=== PATIENT | female | born 1950 | race Caucasian/White ===

== ENCOUNTER 2017-12-25 22:48 | Inpatient (IN) | payer MEDICARE, OTHER ==
--- NOTE | 2017-12-25 23:04 | PDOC ---
History of Present Illness - General Chief Complaint: Nausea/Vomiting Stated Complaint: VOMITING/ PANCREATIC CANCER Time Seen by Provider: 12/25/17 23:04 History Source: Patient Exam Limitations: No Limitations - History of Present Illness Initial Comments: 12/25/17 23:11 This is a 67-year-old female brought in by her son for evaluation of abdominal pain and vomiting 2 days. Patient has a history of pancreatic cancer and just finished her first round of chemotherapy. She is on 3 different chemotherapy drugs and it is a aggressive regime.. Patients chemotherapy was on Tuesday of last week. She then also had 2 days of chemotherapy at home via a pump and a port. Her chemotherapy was stopped on Tuesday and shortly after that she started vomiting and has been vomiting since and unable to tolerate any by mouth's as per her family. Patient said that the abdominal pain is constant and she takes Percocet for it however she is not been able to take the Percocet because she's been vomiting. Patient said at this point the vomitus consists of bile. Patient last bowel movement was 2 days ago. Patient denies any fevers or chills. Patient denies any urinary complaints. PAST MEDICAL HISTORY: no significant history PAST SURGICAL HISTORY: no significant history FAMILY HISTORY: no pertinant history SOCIAL HISTORY: Pt lives with family and is employed. MEDICATIONS: reviewed ALLERGIES: As per nursing notes Review of Systems General: No fevers or chills, no weakness, no weight loss HEENT: No change in vision. No sore throat,. No ear pain CardioVascular: No chest pain or shortness of breath Respiratory:No cough, or wheezing. Gastrointestinal: + nausea, + vomitting, no diarrhea or constipation, No rectal bleeding Genitourinary: No dysuria, hematuria, or frequency Musculoskeletal: No joint or muscle pain or swelling Neurologic: No headache, vertigo, dizziness or loss of consciousness Psychiatric: nor depression Skin: No rashes or easy bruising Endocrine: no increased thirst or abnormal weight change Allergic: no skin or latex allergy All other systems reviewed and normal Exam: General: Well-nourished well-developed individual, no acute distress, but appears uncomfortable. HEENT: Throat: Normal, tonsils normal, no erythema or exudate, mucous membranes are dry Neck: Supple, no meningeal signs, no lymphadenopathy Eyes::Pupils equal reactive and round, extraocular motion intact Chest: Nontender to palpation Cardiac: S1-S2 normal, regular rate and rhythm, no murmurs rubs or gallops Respiratory: Lungs clear to auscultation bilateral Abdomen: Soft, nondistended, normal bowel sounds, moderately tender to palpation across the upper abdomen, bowel sounds are present but slightly decreased Extremities: Warm, dry, no cyanosis, clubbing, or edema Skin: No rashes Neuro: Alert and oriented x3, nonfocal exam grossly intact Psych: Normal mood and affect Medical decision making this is a 67-year-old female who comes in complaining of 2 days of vomiting post her first dose of a aggressive chemotherapy regime for pancreatic cancer. Patient also on exam has upper abdominal pain. Patient said she has not had a bowel movement 2 days and her vomitus is bilious. Will obtain workup of CBC, comp, EKG, CT abdomen and pelvis, lipase, uric acid, lactic acid, and phosphate. Will reassess and follow-up on the workup/evaluation Reevaluation 12 midnight. Patient on second liter of fluid says she feels a little better. Patient given Dilaudid and antiemetics no further vomiting in the emergency department 12/26/17 01:27 Reevaluation: Post second liter of fluid patient is able to urinate feels much better and tolerating small amounts of ice chips no further vomiting CT scan shows acute pancreatitis, acute cholecystitis, air in the biliary tree and a blocked pancreatic stent. All of patient's chemotherapy doctors and surgeons or [facility] (formerly [facility]). Patient's son is a neurologist who was unable to get in touch with her Drs. arguelles and arrange for transfer of her tonight so she will be admitted to a [facility] bed overnight to allow him to make the arrangements for transfer of her down to [place] where her oncology team is. She will be brought in to an observation bed overnight to allow her son and family to make arrangements for her transfer down to [facility] first thing in the morning. Discussed with Dr. Reese who was accepted the patient for placement into an observation bed overnight Past History - Past Medical History Allergies/Adverse Reactions: Allergies Allergy/AdvReac Type Severity Reaction Status Date / Time Tetracyclines Allergy Verified 12/25/17 22:59 Home Medications: Ambulatory Orders Ondansetron HCl [Zofran] 4 mg PO PRN 12/25/17 Oxycodone HCl 5 mg PO PRN 12/25/17 ED Treatment Course - LABORATORY CBC & Chemistry Diagram: 12/25/17 23:00 12/25/17 23:00 *DC/Admit/Observation/Transfer Diagnosis at time of Disposition: Cholecystitis without cholelithiasis Acute pancreatitis Qualifiers: Pancreatitis type: other Acute pancreatitis complication: unspecified Qualified Code(s): K85.80 - Other acute pancreatitis without necrosis or infection Pancreatic cancer Qualifiers: Pancreatic malignancy location: head of pancreas Qualified Code(s): C25.0 - Malignant neoplasm of head of pancreas - Discharge Dispostion Condition at time of disposition: Stable Admit: Yes - Referrals - Patient Instructions - Post Discharge Activity
[2017-12-25] MEDS ORDERED: HYDROmorphone HCL CARPU-JECT 1 MG/1 ML DISP.SYRIN IVPUSH ONE (23:09)
[2017-12-25] MEDS ORDERED: SODIUM CHLORIDE 1,000 ML IV ONE (23:09)
[2017-12-25] MEDS ORDERED: ONDANSETRON 4 MG/2 ML VIAL IVPB ONE (23:10)
[2017-12-25 23:12] VITALS: BMI 23.4
[2017-12-25] MEDS ORDERED: ONDANSETRON 4 MG/2 ML VIAL ONE (23:15)
[2017-12-25] MEDS ORDERED: HYDROmorphone HCL CARPU-JECT 1 MG/1 ML DISP.SYRIN ONE (23:15)
[2017-12-25 23:18] LABS: HEMATOCRIT 42.2 % (32.4-45.2); HEMOGLOBIN 14.3 GM/dl (10.7-15.3); MCH 29.6 pg (25.7-33.7); MCHC 33.8 g/dl (32.0-36.0); MEAN CELL VOLUME 87.6 fl (80-96); MEAN PLT VOLUME 8.8 fl (7.5-11.1); PLATELET COUNT 291 K/MM3 (134-434); RBC 4.82 M/mm3 (3.60-5.2)
[2017-12-25 23:41] LABS: ALBUMIN 3.7 g/dl (3.5-5.0); ALK PHOS 183 U/L (32-92); ANION GAP 11 (8-16); BILIRUBIN,TOTAL 1.4 mg/dl (0.2-1.0); BLOOD UREA NITROGEN 13 mg/dl (7-18); CALCIUM 9.1 mg/dl (8.4-10.2); CHLORIDE 95 mmol/L (98-107); CO2 23 mmol/L (22-28); CREATININE 0.7 mg/dl (0.6-1.3); GLUCOSE,RANDOM 144 mg/dl (74-106); POTASSIUM 3.7 mmol/L (3.5-5.1); SGOT/AST 59 U/L (10-42); SGPT/ALT 117 U/L (10-40); SODIUM 129 mmol/L (136-145); TOT PROT 6.9 g/dl (6.4-8.3)
[2017-12-25 23:43] LABS: PLATELET ESTIMATE ADEQUATE
[2017-12-26 00:19] LABS: LIPASE 86 U/L (73-393)
[2017-12-26] MEDS ORDERED: ASPIRIN 81 MG CHEWABLE TABLETS PO ONE (00:31)
[2017-12-26 01:03] LABS: PHOSPHOROUS 2.9 mg/dL (2.5-4.9); URIC ACID 2.3 mg/dL (2.6-7.2)
[2017-12-26] MEDS ORDERED: PIPERACILLIN/TAZOB 4.5 GM/100 ML PRE-DOCKED IVPB STA (01:11)
[2017-12-26] MEDS ORDERED: PIPERACILLIN/TAZOBACTAM 4.5 GM VIAL IVPB ONE (01:13)
[2017-12-26 01:17] LABS: URINE APPEARANCE CLEAR; URINE BILIRUBIN NEGATIVE (NEGATIVE); URINE BLOOD NEGATIVE (NEGATIVE); URINE COLOR STRAW; URINE GLUCOSE (UA) NEGATIVE (NEGATIVE); URINE KETONE TRACE (NEGATIVE); URINE LEUK ESTERASE NEGATIVE (NEGATIVE); URINE NITRITE NEGATIVE (NEGATIVE); URINE PROTEIN NEGATIVE (NEGATIVE); URINE UROBILINOGEN NEGATIVE mg/dL (0.2-1.0)
[2017-12-26] MEDS: SODIUM CHLORIDE 1,000 ML IV SCH (01:30)
[2017-12-26] MEDS ORDERED: PROCHLORPERAZINE INJECTION 10 MG/2 ML VIAL IVPB ONE ×2 (02:30→05:15)
[2017-12-26] MEDS ORDERED: HYDROmorphone HCL CARPU-JECT 1 MG/1 ML DISP.SYRIN IVPUSH ONE (02:31)
[2017-12-26] MEDS ORDERED: HYDROmorphone HCL CARPU-JECT 1 MG/1 ML DISP.SYRIN ONE (04:53)
--- NOTE | 2017-12-26 07:41 | HP ---
CHIEF COMPLAINT: nausea and vomiting Oncologist: Dr Duran HISTORY OF PRESENT ILLNESS: patient is a 67-year-old female with a past medical history of hyperlipidemia, osteoarthritis, and pancreatic cancer. patient is status post biliary stent, 11/16/2017. She is receiving chemotherapy her last dose of chemotherapy was 12/21/2017. In addition patient has received 2 doses of chemotherapy at home via pump through her port on and December 22 in December 23. Patient reports her last dose of Neulasta was 12/23/2017. Patient reports since December [id number] she has been experiencing ongoing abdominal pain, nausea and vomiting. Nausea vomiting has been pers past 3 days. Son reports the vomiting became intractable within the past 24 hours and she has been unable to tolerate any liquids. As a result she started evaluation in the emergency department. Patient denies any fevers. ER course was notable for: (1) wbc 30 (2) tbilli 1.4 ast//alt 59/117 (3) CT of abdomen and pelvis without contrast, pancreatic head mass with suspected superimposed pancreatitis, cholecystitis Recent Travel: none PAST MEDICAL HISTORY: see hpi PAST SURGICAL HISTORY: see hpi Social History: retired physician Smoking:never smoked Alcohol:none Drugs: none Family History: non contributory to this admission Allergies Tetracyclines Allergy (Verified 12/25/17 22:59) HOME MEDICATIONS: Home Medications Medication Instructions Recorded Ondansetron HCl [Zofran] 4 mg PO PRN 12/25/17 Oxycodone HCl 5 mg PO PRN 12/25/17 REVIEW OF SYSTEMS CONSTITUTIONAL: Absent: fever, chills, diaphoresis, generalized weakness, malaise, loss of appetite, weight change HEENT: Absent: rhinorrhea, nasal congestion, throat pain, throat swelling, difficulty swallowing, mouth swelling, ear pain, eye pain, visual changes CARDIOVASCULAR: Absent: chest pain, syncope, palpitations, irregular heart rate, lightheadedness , peripheral edema RESPIRATORY: Absent: cough, shortness of breath, dyspnea with exertion, orthopnea, wheezing, stridor, hemoptysis GASTROINTESTINAL: present: nausea, vomiting Absent: abdominal pain, abdominal distension, diarrhea, constipation, melena, hematochezia GENITOURINARY: Absent: dysuria, frequency, urgency, hesitancy, hematuria, flank pain, genital pain MUSCULOSKELETAL: Absent: myalgia, arthralgia, joint swelling, back pain, neck pain SKIN: Absent: rash, itching, pallor HEMATOLOGIC/IMMUNOLOGIC: Absent: easy bleeding, easy bruising, lymphadenopathy, frequent infections ENDOCRINE: Absent: unexplained weight gain, unexplained weight loss, heat intolerance, cold intolerance NEUROLOGIC: Absent: headache, focal weakness or paresthesias, dizziness, unsteady gait, seizure, mental status changes, bladder or bowel incontinence PSYCHIATRIC: Absent: anxiety, depression, suicidal or homicidal ideation, hallucinations. PHYSICAL EXAMINATION Vital Signs - 24 hr 12/25/17 12/26/17 12/26/17 23:06 01:45 01:53 Temperature 98.2 F Pulse Rate 100 H Pulse Rate [ 69 Right] Respiratory 18 18 18 Rate Blood Pressure 100/75 Blood Pressure 103/59 [Left] O2 Sat by Pulse 99 97 97 Oximetry (%) 12/26/17 05:57 Temperature 99.0 F Pulse Rate 82 Pulse Rate [ Right] Respiratory 18 Rate Blood Pressure 105/57 Blood Pressure [Left] O2 Sat by Pulse 99 Oximetry (%) GENERAL: Awake, alert, and fully oriented, in no acute distress. HEAD: Normal with no signs of trauma. EYES: Pupils equal, round and reactive to light, extraocular movements intact, sclera anicteric, conjunctiva clear. No lid lag. EARS, NOSE, THROAT: Ears normal, nares patent, oropharynx clear without exudates. Moist mucous membranes. NECK: Normal range of motion, supple without lymphadenopathy, JVD, or masses. LUNGS: Breath sounds equal, clear to auscultation bilaterally. No wheezes, and no crackles. No accessory muscle use. HEART: Regular rate and rhythm, normal S1 and S2 without murmur, rub or gallop. ABDOMEN: Soft, diffuse abdominal tenderness, not distended, normoactive bowel sounds, no guarding, no rebound, no masses. No hepatomegaly or splenomegaly. MUSCULOSKELETAL: Normal range of motion at all joints. No bony deformities or tenderness. No CVA tenderness. UPPER EXTREMITIES: 2+ pulses, warm, well-perfused. No cyanosis. No clubbing. No peripheral edema. LOWER EXTREMITIES: 2+ pulses, warm, well-perfused. No calf tenderness. No peripheral edema. NEUROLOGICAL: Cranial nerves II-XII intact. Normal speech. Normal gait. PSYCHIATRIC: Cooperative. Good eye contact. Appropriate mood and affect. SKIN: right anterior chest wall port, no induration no subcutaneous emphysema. Warm, dry, normal turgor, no rashes or lesions noted, normal capillary refill. Laboratory Results - last 24 hr 12/25/17 12/25/17 12/25/17 01:51 01:51 23:00 WBC 30.0 H RBC 4.82 Hgb 14.3 Hct 42.2 MCV 87.6 MCH 29.6 MCHC 33.8 RDW 13.0 Plt Count 291 MPV 8.8 Neutrophils % No Result Required. Neutrophils % (Manual) 28.0 L Band Neutrophils % 0.0 Lymphocytes % No Result Required. Lymphocytes % (Manual) 1.9 L Monocytes % (Manual) 0 L Eosinophils % (Manual) 0.0 Basophils % (Manual) 0.0 Platelet Estimate Adequate Sodium 129 L Potassium 3.7 Chloride 95 L Carbon Dioxide 23 Anion Gap 11 BUN 13 Creatinine 0.7 Creat Clearance w eGFR > 60 Random Glucose 144 H Lactic Acid Uric Acid Calcium 9.1 Phosphorus Total Bilirubin 1.4 H AST 59 H ALT 117 H Alkaline Phosphatase 183 H Creatine Kinase Troponin I Total Protein 6.9 Albumin 3.7 Lipase 86 Urine Color Urine Appearance Urine pH Ur Specific [place] Urine Protein Urine Glucose (UA) Urine Ketones Urine Blood Urine Nitrite Urine Bilirubin Urine Urobilinogen Ur Leukocyte Esterase 12/25/17 12/25/17 12/26/17 23:00 23:00 00:10 WBC RBC Hgb Hct MCV MCH MCHC RDW Plt Count MPV Neutrophils % Neutrophils % (Manual) Band Neutrophils % Lymphocytes % Lymphocytes % (Manual) Monocytes % (Manual) Eosinophils % (Manual) Basophils % (Manual) Platelet Estimate Sodium Potassium Chloride Carbon Dioxide Anion Gap BUN Creatinine Creat Clearance w eGFR Random Glucose Lactic Acid Uric Acid 2.3 L Calcium Phosphorus 2.9 Total Bilirubin AST ALT Alkaline Phosphatase Creatine Kinase 33 Troponin I < 0.03 Total Protein Albumin Lipase Urine Color Urine Appearance Urine pH Ur Specific [place] Urine Protein Urine Glucose (UA) Urine Ketones Urine Blood Urine Nitrite Urine Bilirubin Urine Urobilinogen Ur Leukocyte Esterase 12/26/17 12/26/17 00:10 00:18 WBC RBC Hgb Hct MCV MCH MCHC RDW Plt Count MPV Neutrophils % Neutrophils % (Manual) Band Neutrophils % Lymphocytes % Lymphocytes % (Manual) Monocytes % (Manual) Eosinophils % (Manual) Basophils % (Manual) Platelet Estimate Sodium Potassium Chloride Carbon Dioxide Anion Gap BUN Creatinine Creat Clearance w eGFR Random Glucose Lactic Acid 1.1 Uric Acid Calcium Phosphorus Total Bilirubin AST ALT Alkaline Phosphatase Creatine Kinase Troponin I Total Protein Albumin Lipase Urine Color Straw Urine Appearance Clear Urine pH 6.0 Ur Specific [place] 1.004 Urine Protein Negative Urine Glucose (UA) Negative Urine Ketones Trace H Urine Blood Negative Urine Nitrite Negative Urine Bilirubin Negative Urine Urobilinogen Negative Ur Leukocyte Esterase Negative ASSESSMENT/PLAN: 1) heme/onc pancreatic cancer - patient and son is requesting transfer to [facility], last dose of chemotherapy was 12/23/17, Neupogen 12/23/2017. [facility], call placed, discussed with Dr Park (cevering for Dr Duran), patient was accepted for transfer, call placed to transfer center , patient is awaiting a bed. - leukocytosis is noted patient is afebrile however patient's last dose of Neupogen was on December 23, close monitoring of WBC and fever curve. - CT of abdomen and pelvis reviewed, patient is status post biliary stent, Dr. Garsia, slight transaminitis noted, pending amylase and lipase in a.m. labs - continue IVF and clear liquid diet f/e/n -clear liquid diet - ivf - replete lytes prn ppx - scd - oob - lovenox dispo: pt require observation admission, pending transfer to [facility] awaiting bed availability Visit type - Emergency Visit Emergency Visit: Yes ED Registration Date: 12/26/17 Care time: The patient presented to the Emergency Department on the above date and was hospitalized for further evaluation of their emergent condition. - New Patient This patient is new to me today: Yes Date on this admission: 12/28/17 - Critical Care Critical Care patient: No Hospitalist Screening - Colonoscopy Questionnaire Colonoscopy Questionnaire: Colonoscopy Questionnaire - Patient: 50 - 75 years old and never had a screening colonoscopy: No History of colon or rectal polyps, or CA: No History of IBD, Crohn's disease or UC: No History of abdominal radiation therapy as a child: No - Relative: 1 with colon or rectal CA, or polyps at age 60 or younger: No Colon or rectal CA diagnosed at age 45 or younger: No Multiple relatives with colon or rectal CA: No - Outcome: Screening Result: Negative Screen
--- NOTE | 2017-12-26 10:12 | EKG ---
Test Reason : Blood Pressure : / mmHG Vent. Rate : 079 BPM Atrial Rate : 079 BPM P-R Int : 124 ms QRS Dur : 062 ms QT Int : 396 ms P-R-T Axes : 024 063 048 degrees QTc Int : 454 ms POOR DATA QUALITY, INTERPRETATION MAY BE ADVERSELY AFFECTED NORMAL SINUS RHYTHM NONSPECIFIC ST ABNORMALITY ABNORMAL ECG NO PREVIOUS ECGS AVAILABLE Confirmed by BETO BUTCHER MD ([id number]) on 12/26/2017 10:11:47 AM Referred By: MD CRUZ Confirmed By:BETO BUTCHER MD
[2017-12-26] MEDS: FAMOTIDINE 20 MG/50 ML IVPB 20 MG/50 ML MG IVPB SCH ×2 (10:29→22:18)
[2017-12-26 10:52] LABS: HEMATOCRIT 33.3 % (32.4-45.2); HEMOGLOBIN 11.3 GM/dl (10.7-15.3); MCH 30.4 pg (25.7-33.7); MEAN CELL VOLUME 89.6 fl (80-96); MEAN PLT VOLUME 9.2 fl (7.5-11.1); PLATELET COUNT 187 K/MM3 (134-434); RBC 3.72 M/mm3 (3.60-5.2); RDW 12.6 % (11.6-15.6); WHITE BLOOD COUNT 20.5 K/mm3 (4.0-10.8)
[2017-12-26 11:42] LABS: ALBUMIN 2.6 g/dl (3.5-5.0); ALK PHOS 128 U/L (32-92); ANION GAP 7 (8-16); BILIRUBIN,TOTAL 0.9 mg/dl (0.2-1.0); BLOOD UREA NITROGEN 10 mg/dl (7-18); CALCIUM 8.1 mg/dl (8.4-10.2); CHLORIDE 108 mmol/L (98-107); CO2 23 mmol/L (22-28); CREATININE < 0.8 mg/dl (0.6-1.3); GLUCOSE,RANDOM 112 mg/dl (74-106); MAGNESIUM 1.8 mg/dL (1.8-2.4); POTASSIUM 4.8 mmol/L (3.5-5.1); SGOT/AST 43 U/L (10-42); SGPT/ALT 81 U/L (10-40); SODIUM 138 mmol/L (136-145); TOT PROT 4.8 g/dl (6.4-8.3)
[2017-12-26 12:15] LABS: AMYLASE 18 U/L (25-125)
[2017-12-26] MEDS ORDERED: MAGNESIUM 1GM/D5W - 1 GM/100 ML IVPB IVPB ONE ×2 (12:15→12:30)
[2017-12-26] MEDS ORDERED: ACETAMINOPHEN 325 MG TABLET (FP) PO PRN (14:13)
[2017-12-26 14:56] LABS: LIPASE 63 U/L (73-393)
[2017-12-26] MEDS: ONDANSETRON 4 MG/2 ML VIAL IVPUSH PRN ×2 (17:00→23:45)
[2017-12-26] MEDS: morphine SULFATE 4 MG/ML VIAL IVPB PRN (23:45)
[2017-12-27] MEDS: morphine SULFATE 4 MG/ML VIAL IVPB PRN ×3 (05:52→16:15)
[2017-12-27] MEDS: ONDANSETRON 4 MG/2 ML VIAL IVPUSH PRN ×2 (05:52→16:15)
[2017-12-27] MEDS: SODIUM CHLORIDE 1,000 ML IV SCH (08:11)
[2017-12-27 09:45] LABS: BASO % 0.1 % (0-2.0); EOS % 0.3 % (0-4.5); HEMATOCRIT 34.3 % (32.4-45.2); HEMOGLOBIN 11.5 GM/dl (10.7-15.3); LYMPH % 10.2 % (8-40); MCH 29.4 pg (25.7-33.7); MCHC 33.6 g/dl (32.0-36.0); MEAN CELL VOLUME 87.7 fl (80-96); MEAN PLT VOLUME 8.2 fl (7.5-11.1); MONO % 1.2 % (3.8-10.2); NEUT % 88.2 % (42.8-82.8); PLATELET COUNT 169 K/MM3 (134-434); RBC 3.91 M/mm3 (3.60-5.2); RDW 12.7 % (11.6-15.6); WHITE BLOOD COUNT 19.1 K/mm3 (4.0-10.8)
[2017-12-27] MEDS: FAMOTIDINE 20 MG/50 ML IVPB 20 MG/50 ML MG IVPB SCH ×2 (09:59→21:20)
[2017-12-27 10:10] LABS: ALBUMIN 2.7 g/dl (3.5-5.0); ALK PHOS 137 U/L (32-92); ANION GAP 4 (8-16); BLOOD UREA NITROGEN 7 mg/dl (7-18); CALCIUM 7.9 mg/dl (8.4-10.2); CHLORIDE 105 mmol/L (98-107); CO2 23 mmol/L (22-28); GLUCOSE,RANDOM 89 mg/dl (74-106); POTASSIUM 3.8 mmol/L (3.5-5.1); SGOT/AST 29 U/L (10-42); SGPT/ALT 65 U/L (10-40); SODIUM 132 mmol/L (136-145); TOT PROT 5.3 g/dl (6.4-8.3)
[2017-12-27 10:28] LABS: CREATININE 0.8 mg/dl (0.6-1.3)
--- NOTE | 2017-12-27 12:32 | PN ---
Physical Exam: SUBJECTIVE: Patient seen and examined. Reports pain improved s/p morphine. Had severe pain earlier today and was given morphine for same. No further vomiting. Tolerated a very small amount of broth. Awaiting transfer to [place]. OBJECTIVE: Vital Signs - 24 hr 3 12/26/17 12/26/17 12/27/17 14:08 21:00 06:00 Temperature 97.4 F L 98.6 F Pulse Rate 84 79 Respiratory 16 16 18 Rate Blood Pressure 105/72 99/50 O2 Sat by Pulse 97 97 95 Oximetry (%) 3 12/27/17 12/27/17 09:00 10:00 Temperature 99.4 F Pulse Rate 79 Respiratory 18 18 Rate Blood Pressure 115/61 O2 Sat by Pulse 96 96 Oximetry (%) GENERAL: The patient is awake, alert, and fully oriented, in no acute distress. HEAD: Normal with no signs of trauma. EYES: PERRL, extraocular movements intact, sclera anicteric, conjunctiva clear. No ptosis. ENT: Ears normal, nares patent, oropharynx clear without exudates, moist mucous membranes. NECK: Trachea midline, full range of motion, supple. LUNGS: Breath sounds equal, clear to auscultation bilaterally, no wheezes, no crackles, no accessory muscle use. HEART: Regular rate and rhythm, S1, S2 without murmur, rub or gallop. ABDOMEN: Soft, tender all quadrants, nondistended, normoactive bowel sounds, no guarding, no rebound, no hepatosplenomegaly, no masses. EXTREMITIES: 2+ pulses, warm, well-perfused, no edema. NEUROLOGICAL: Cranial nerves II through XII grossly intact. Normal speech, gait not observed. PSYCH: Normal mood, normal affect. SKIN: Warm, dry, normal turgor, no rashes or lesions noted Laboratory Results - last 24 hr 3 12/25/17 12/26/17 12/27/17 01:51 06:55 09:30 WBC 19.1 H RBC 3.91 Hgb 11.5 Hct 34.3 MCV 87.7 MCH 29.4 MCHC 33.6 RDW 12.7 Plt Count 169 MPV 8.2 Neutrophils % 88.2 H Neutrophils % (Manual) 91.0 H* Band Neutrophils % 1.0 Lymphocytes % 10.2 Lymphocytes % (Manual) 8.0 Monocytes % 1.2 L Monocytes % (Manual) 0 L Eosinophils % 0.3 Basophils % 0.1 Sodium Potassium Chloride Carbon Dioxide Anion Gap BUN Creatinine Creat Clearance w eGFR Random Glucose Calcium Total Bilirubin AST ALT Alkaline Phosphatase Total Protein Albumin Total Amylase 18 L Lipase 63 L 3 12/27/17 09:30 WBC RBC Hgb Hct MCV MCH MCHC RDW Plt Count MPV Neutrophils % Neutrophils % (Manual) Band Neutrophils % Lymphocytes % Lymphocytes % (Manual) Monocytes % Monocytes % (Manual) Eosinophils % Basophils % Sodium 132 L Potassium 3.8 D Chloride 105 Carbon Dioxide 23 Anion Gap 4 L BUN 7 D Creatinine 0.8 Creat Clearance w eGFR > 60 Random Glucose 89 D Calcium 7.9 L Total Bilirubin 1.0 AST 29 D ALT 65 H Alkaline Phosphatase 137 H Total Protein 5.3 L Albumin 2.7 L Total Amylase Lipase Active Medications 3 Generic Name Dose Route Start Last Admin Trade Name Freq PRN Reason Stop Dose Admin Acetaminophen 650 mg 12/26/17 14:13 Tylenol - PO Q4H PRN PAIN LEVEL 1-5 Sodium Chloride 1,000 mls @ 100 mls/hr 12/26/17 01:30 12/27/17 08:11 Normal Saline - IV Not Given ASDIR MARISOL Famotidine/Sodium Chloride 20 mg in 50 mls @ 144 mls/hr 12/26/17 10:00 09:59 Pepcid 20 Mg Premixed Ivpb - IVPB 144 mls/hr BID MARISOL Administration Morphine Sulfate 2 mg 12/26/17 14:12 12/27/17 09:58 Morphine Sulfate IVPB 2 mg Q4H PRN Administration PAIN LEVEL 7 - 10 Ondansetron HCl 4 mg 12/26/17 08:25 12/27/17 05:52 Zofran Injection IVPUSH 4 mg Q8H PRN Administration NAUSEA ASSESSMENT/PLAN: 67yF with PMH pancreatic CA on chemo, last dose 12/21/17, s/p biliary stent ; HLD and OA who presented to the ED with nausea and vomiting x 3 days, intractable x 24h. N/V/abdominal pain in setting of pancreatic CA, CBD stent occlusion, ? pancreatitis - cont zofran PRN - clear liquids as tolerated - morphine for pain - awaiting transfer to [place], no bed at present. hyponatremia - cont ivf HLD - po medications on hold DVT PPX - heparin held as pt may need surgical intervention once arrives to [place] FEN - NS @ 100cc/hr - BMP in am if still here - clear liquid diet as tolerated. Dispo: Awaiting transfer to [place] Visit type - Emergency Visit Emergency Visit: Yes ED Registration Date: 12/26/17 Care time: The patient presented to the Emergency Department on the above date and was hospitalized for further evaluation of their emergent condition. - New Patient This patient is new to me today: Yes Date on this admission: 12/27/17 - Critical Care Critical Care patient: No
[2017-12-27] MEDS ORDERED: DEXTROSE 5%-NORMAL SALINE 1,000 ML IV SCH (19:15)
[2017-12-27] MEDS ORDERED: PIPERACIL/TAZOB 3.375 GM 3.375 GM/50 ML PREMIX IVPB SCH (19:15)
[2017-12-27] MEDS: HYDROmorphone HCL CARPU-JECT 1 MG/1 ML DISP.SYRIN IVPUSH PRN (19:58)
[2017-12-27] MEDS: PIPERACILLIN/TAZOB 3.375 GM 3.375 GM in DEXTROSE 5%-WATER - 50 ML IVPB SCH (20:22)
[2017-12-28] MEDS: HYDROmorphone HCL CARPU-JECT 1 MG/1 ML DISP.SYRIN IVPUSH PRN ×4 (01:08→20:44)
[2017-12-28] MEDS: PIPERACILLIN/TAZOB 3.375 GM 3.375 GM in DEXTROSE 5%-WATER - 50 ML IVPB SCH (01:13)
[2017-12-28 08:54] LABS: HEMATOCRIT 32.2 % (32.4-45.2); HEMOGLOBIN 10.3 GM/dl (10.7-15.3); MCH 28.3 pg (25.7-33.7); MCHC 32.1 g/dl (32.0-36.0); MEAN CELL VOLUME 88.2 fl (80-96); MEAN PLT VOLUME 8.7 fl (7.5-11.1); PLATELET COUNT 144 K/MM3 (134-434); RBC 3.65 M/mm3 (3.60-5.2); RDW 13.1 % (11.6-15.6); WHITE BLOOD COUNT 7.5 K/mm3 (4.0-10.8)
[2017-12-28 09:03] LABS: ALBUMIN 2.3 g/dl (3.5-5.0); ALK PHOS 133 U/L (32-92); ANION GAP 2 (8-16); CALCIUM 7.4 mg/dl (8.4-10.2); CHLORIDE 102 mmol/L (98-107); CO2 26 mmol/L (22-28); GLUCOSE,RANDOM 179 mg/dl (74-106); MAGNESIUM 1.6 mg/dL (1.8-2.4); PHOSPHOROUS 1.8 mg/dl (2.5-4.6); POTASSIUM 3.8 mmol/L (3.5-5.1); SGOT/AST 27 U/L (10-42); SGPT/ALT 52 U/L (10-40); SODIUM 130 mmol/L (136-145); TOT PROT 4.8 g/dl (6.4-8.3)
--- NOTE | 2017-12-28 09:27 | PN ---
Progress Note (short form) - Note Progress Note: ID Consult dictated 67 year old female PMH pancreatitic cancer, biliary obstruction s/p biliary stent admitted with intractable N/V. Received chemo approx 1 week ago, neulasta 12/23 Afebrile with 30K WBC. CT shows pancreatic head mass, obstructed CBD stent, pancreatitis/ cholecystitis. R/O biliary sepsis Obtain BC Continue empiric zosyn Awaiting transfer to [facility]
[2017-12-28 09:34] LABS: BLOOD UREA NITROGEN < 6 mg/dl (7-18); CREATININE < 0.8 mg/dl (0.6-1.3)
[2017-12-28 09:35] LABS: BILIRUBIN,TOTAL < 0.5 mg/dl (0.2-1.0)
[2017-12-28] MEDS: FAMOTIDINE 20 MG/50 ML IVPB 20 MG/50 ML MG IVPB SCH ×2 (09:43→22:40)
[2017-12-28] MEDS: PIPERACILLIN/TAZOB 3.375 GM 3.375 GM/50 ML BAG IVPB SCH ×2 (09:44→17:20)
[2017-12-28] MEDS ORDERED: MAGNESIUM SULFATE 2 GM in SODIUM CHLORIDE 100 ML IVPB ONE (09:46)
[2017-12-28] MEDS ORDERED: MAGNESIUM SULFATE IN WATER 2 GM/50 ML IVPB IVPB ONE (10:00)
--- NOTE | 2017-12-28 10:00 | CONS ---
DATE OF CONSULTATION: DATE OF DICTATION: 12/28/2017 REASON FOR CONSULTATION: The patient is a 67-year-old female with a history of pancreatic cancer, evaluated for sepsis. HISTORY OF PRESENT ILLNESS: The patient was recently diagnosed with pancreatic cancer and has been receiving chemotherapy. She last received chemotherapy approximately 1 week ago. She developed intractable abdominal pain, nausea and vomiting for the past 2 to 3 days. The vomitus was described as bilious in nature without hematemesis or tray blood. She has had no bowel movement for the past 2 days. She was brought to the emergency room where a CAT scan was performed and showed a pancreatic head mass with an obstructed common bile duct stent, changes consistent with acute pancreatitis and cholecystitis as well as air in the biliary tree. She was empirically treated with Zosyn. She is presently awaiting transfer to [facility]. The patient received Neulasta on December 23, 2017. On presentation her white blood cell count was 30,000. At the present time she is comfortable after receiving pain medications. She complains of abdominal pain and vomiting. No complaints of fever or chills. PAST MEDICAL HISTORY: Positive for biliary stent placed November 16, 2017, hyperlipidemia, osteoarthritis. PAST SURGICAL HISTORY: Status post port placement. ALLERGIES: TETRACYCLINE. MEDICATIONS: Include Zofran and oxycodone. SOCIAL HISTORY: She lives at home with family members. Nonsmoker, nondrinker. SYSTEMS REVIEW: Neurologic: No loss of consciousness, seizure activity, focal weakness. Cardiac: Negative chest pain or palpitations. Respiratory: Negative cough or sputum production.Gastrointestinal: As per HPI. Genitourinary: Negative for urinary tract infection. LABORATORY DATA: White count on admission 30,000, 91 neutrophils, 1 band, 8 lymphocytes. Presently, white blood cell count 7.5, hematocrit 32.2, platelet count 144. BUN 7, creatinine 0.8, total bilirubin 1.0, alkaline phosphatase 137, AST 29. Urinalysis negative. PHYSICAL EXAMINATION:General: She is sedated status post pain medicine. Vital Signs: Temperature 98.2, blood pressure 109/57, pulse 85, regular, respirations 16 per minute. HEENT: Sclerae are anicteric. Dry mucous membranes. Cardiac: Heart sounds S1, S2. Lungs: Diminished breath sounds at the bases. Abdomen: Soft. There is epigastric tenderness to palpation. No rebound or rigidity. Extremities: Negative for edema. IMPRESSION: A 67-year-old female with a history of pancreatic cancer, biliary obstruction, status post biliary stent placement, now admitted with intractable abdominal pain, nausea, vomiting. Received chemotherapy approximately 1 week ago with Neulasta. Afebrile with white blood cell count 30,000. Computed axial tomography scan shows pancreatic head mass with obstructed common bile duct stent, pancreatitis and cholecystitis. 1. Probable biliary sepsis. 2. Leukocytosis, multifactorial (sepsis, Neulasta). 3. Pancreatic carcinoma. 4. Biliary tract obstruction. RECOMMENDATIONS: Obtain blood cultures. Empiric antibiotic coverage of biliary tract pathogens with Zosyn. Patient awaiting transfer to [facility]. Continue IV fluid hydration and pain medicine. Thank you for the kind referral. ROSARIO MANN M.D. [id number]
[2017-12-28] MEDS ORDERED: SODIUM PHOSPHATE - 21 MM in SODIUM CHLORIDE 250 ML IVPB ONE (10:15)
--- NOTE | 2017-12-28 11:24 | DS ---
Physical Exam: SUBJECTIVE: Patient seen and examined, reports ongoing abdominal pain and weakness OBJECTIVE:patient is a 67-year-old female with a past medical history of hyperlipidemia, osteoarthritis, and pancreatic cancer. patient is status post biliary stent, 11/16/2017. She is receiving chemotherapy her last dose of chemotherapy was 12/21/2017. In addition patient has received 2 doses of chemotherapy at home via pump through her port on and December 22 in December 23. Patient reports her last dose of Neulasta was . Patient reports since December [id number] she has been experiencing ongoing abdominal pain, nausea and vomiting. Nausea vomiting has been pers past 3 days. Son reports the vomiting became intractable within the past 24 hours and she has been unable to tolerate any liquids. As a result she sought evaluation in the emergency department. Patient denies any fevers. ER course was notable for: (1) wbc 30 (2) tbilli 1.4 ast//alt 59/117 (3) CT of abdomen and pelvis without contrast, pancreatic head mass with suspected superimposed pancreatitis, cholecystitis Vital Signs Period Temp Pulse Resp BP Sys/Turner Pulse Ox Last 24 Hr 98.2 F-99.5 F 80-85 16-18 107-118/46-78 96-99 PHYSICAL EXAM GENERAL: The patient is awake, alert, and fully oriented, in no acute distress. HEAD: Normal with no signs of trauma. EYES: PERRL, extraocular movements intact, sclera anicteric, conjunctiva clear. ENT: Ears normal, nares patent, oropharynx clear without exudates, moist mucous membranes. NECK: Trachea midline, full range of motion, supple. LUNGS: Breath sounds equal, clear to auscultation bilaterally, no wheezes, no crackles, no accessory muscle use. HEART: Regular rate and rhythm, S1, S2 without murmur, rub or gallop. ABDOMEN: Soft, nontender, nondistended, normoactive bowel sounds, no guarding, no rebound, no hepatosplenomegaly, no masses. EXTREMITIES: 2+ pulses, warm, well-perfused, no edema. NEUROLOGICAL: Cranial nerves II through XII grossly intact. Normal speech, gait not observed. PSYCH: Normal mood, normal affect. SKIN: Warm, dry, normal turgor, no rashes or lesions noted. LABS Laboratory Results - last 24 hr 12/28/17 12/28/17 08:10 08:10 WBC 7.5 D RBC 3.65 Hgb 10.3 L D Hct 32.2 L MCV 88.2 MCH 28.3 MCHC 32.1 RDW 13.1 Plt Count 144 MPV 8.7 Neutrophils % No Result Required. Neutrophils % (Manual) 70.0 Band Neutrophils % 8.0 Lymphocytes % No Result Required. Lymphocytes % (Manual) 15.0 Monocytes % (Manual) 5 Eosinophils % (Manual) 1.0 Metamyelocytes 1 Sodium 130 L Potassium 3.8 Chloride 102 Carbon Dioxide 26 Anion Gap 2 L BUN < 6 L Creatinine < 0.8 Creat Clearance w eGFR > 60 Random Glucose 179 H D Calcium 7.4 L Phosphorus 1.8 L Magnesium 1.6 L Total Bilirubin < 0.5 D AST 27 ALT 52 H Alkaline Phosphatase 133 H Total Protein 4.8 L Albumin 2.3 L Microbiology 12/26/17 00:18 Urine - Urine Clean Catch Urine Culture - Final NO GROWTH OBTAINED IMAGING CT of abdomen and pelvis without contrast, pancreatic head mass with suspected superimposed pancreatitis, cholecystitis HOSPITAL COURSE: Patient was admitted from the emergency department for nausea/vomiting, abdominal pain in setting of pancreatic CA. Patient has questionable common bile duct stent occulsion and patient was started on zosyn for empirc coverage for billary sepsis. She was noted to have leukocytosis upon arrival from the emergency department, however, patient received neupogen on 12/23/17. patient's pain was well controlled with dilaudid and oxycodone. patient and son requested transfer to [facility] since her oncologist are affliated with [facility]. Patient is under the care of oncologist at [facility] Dr. Duran, call placed , discussed with Dr Park (cevering for Dr Duran), patient was accepted for transfer. PLAN -transfer to [facility], Dr Valiente accepting physician Date of Admission:12/26/17 Date of Discharge: 12/28/17 Minutes to complete discharge: 45 Discharge Summary Reason For Visit: VOMITING/ PANCREATIC CANCER Current Active Problems Acute pancreatitis (Acute) Cholecystitis without cholelithiasis (Acute) Pancreatic cancer (Acute) Condition: Improved - Instructions Disposition: TRANSFER ACUTE CARE/OTHER HOSP - Home Medications Comprehensive Discharge Medication List: Ambulatory Orders Ondansetron HCl [Zofran] 4 mg PO PRN 12/25/17 Oxycodone HCl 5 mg PO PRN 12/25/17 This patient is new to me today: No Emergency Visit: Yes ED Registration Date: 12/26/17 Care time: The patient presented to the Emergency Department on the above date and was hospitalized for further evaluation of their emergent condition. Critical Care patient: No - Discharge Referral Referred to [facility] Med P.C.: No
[2017-12-28] MEDS ORDERED: oxyCODONE HCL 5 MG TABLET PO PRN (11:28)
[2017-12-28] MEDS: SODIUM CHLORIDE 0.45%/POT 20 MEQ/1,000 ML INFUS.BAG IV SCH (14:39)
[2017-12-29] MEDS: PIPERACILLIN/TAZOB 3.375 GM 3.375 GM/50 ML BAG IVPB SCH ×2 (01:14→09:57)
[2017-12-29] MEDS: HYDROmorphone HCL CARPU-JECT 1 MG/1 ML DISP.SYRIN IVPUSH PRN ×3 (03:56→11:49)
[2017-12-29 06:53] VITALS: BP 99/51; PULSE 71; TEMP 98.4
[2017-12-29] MEDS: FAMOTIDINE 20 MG/50 ML IVPB 20 MG/50 ML MG IVPB SCH ×2 (08:31→11:57)
[2017-12-29] MEDS: ONDANSETRON 4 MG/2 ML VIAL IVPUSH PRN (08:31)
--- NOTE | 2017-12-29 09:30 | PN ---
Progress Note, Physician History of Present Illness: Awake, alert. Seated in bed. C/O abdominal pain, nausea/ vomiting; inability to keep anything down. No c/o fever/ chills Blood c/s prelim negative - Current Medication List Current Medications: Active Medications Acetaminophen (Tylenol -) 650 mg PO Q4H PRN PRN Reason: PAIN LEVEL 1-3 Hydromorphone HCl (Dilaudid Injection -) 1 mg IVPUSH Q3H PRN PRN Reason: PAIN SCALE 7-10 Last Admin: 12/29/17 08:30 Dose: 1 mg Famotidine/Sodium Chloride (Pepcid 20 Mg Premixed Ivpb -) 20 mg in 50 mls @ 144 mls/hr IVPB BID MARISOL Last Admin: 12/29/17 08:31 Dose: 144 mls/hr Piperacillin Sod/Tazobactam Sod (Zosyn 3.375gm Ivpb (Pre-Docked)) 3.375 gm in 50 mls @ 100 mls/hr IVPB Q8H-IV MARISOL PRN Reason: Protocol Last Admin: 12/29/17 01:14 Dose: 100 mls/hr Potassium Chloride/Sodium Chloride (1/2ns+20meq Kcl) 20 meq in 1,000 mls @ 42 mls/hr IV ASDIR MARISOL Last Admin: 12/28/17 14:39 Dose: 42 mls/hr Ondansetron HCl (Zofran Injection) 4 mg IVPUSH Q8H PRN PRN Reason: NAUSEA Last Admin: 12/29/17 08:31 Dose: 4 mg Oxycodone HCl (Roxicodone -) 5 mg PO Q4H PRN PRN Reason: PAIN LEVEL 4-6 - Objective Vital Signs: Vital Signs Temperature 98.4 F 12/29/17 06:00 Pulse Rate 71 12/29/17 06:00 Respiratory Rate 17 12/29/17 06:00 Blood Pressure 99/51 12/29/17 06:00 O2 Sat by Pulse Oximetry (%) 96 12/29/17 06:00 Constitutional: Yes: No Distress Eyes: Yes: Conjunctiva Clear Cardiovascular: Yes: Regular Rate and Rhythm, S1, S2 Respiratory: Yes: CTA Bilaterally Gastrointestinal: Yes: Normal Bowel Sounds, Soft, Tenderness, Other (+ epigastric tenderness) Edema: No Labs: CBC, BMP 12/28/17 08:10 12/28/17 08:10 Assessment/Plan Pancreatic ca/ biliary tract obstruction R/O biliary sepsis Leukocytosis- multifactorial Await c/s Continue empiric coverage biliary tract pathogens with zosyn Awaiting transfer to [facility]
[2017-12-29 11:00] LABS: EOS % 1.7 % (0-4.5); HEMATOCRIT 31.3 % (32.4-45.2); HEMOGLOBIN 10.3 GM/dl (10.7-15.3); LYMPH % 21.8 % (8-40); MCH 29.2 pg (25.7-33.7); MEAN CELL VOLUME 88.5 fl (80-96); MEAN PLT VOLUME 8.7 fl (7.5-11.1); MONO % 12.1 % (3.8-10.2); NEUT % 64.4 % (42.8-82.8); PLATELET COUNT 151 K/MM3 (134-434); RBC 3.54 M/mm3 (3.60-5.2); RDW 12.6 % (11.6-15.6); WHITE BLOOD COUNT 3.9 K/mm3 (4.0-10.8)
[2017-12-29] MEDS: SODIUM CHLORIDE 0.45%/POT 20 MEQ/1,000 ML INFUS.BAG IV SCH (11:57)
[2017-12-29 13:46] LABS: ALBUMIN 2.4 g/dl (3.5-5.0); ALK PHOS 130 U/L (32-92); ANION GAP 7 (8-16); BILIRUBIN,TOTAL 0.9 mg/dl (0.2-1.0); BLOOD UREA NITROGEN 6 mg/dl (7-18); CALCIUM 7.9 mg/dl (8.4-10.2); CHLORIDE 103 mmol/L (98-107); CO2 24 mmol/L (22-28); CREATININE < 0.8 mg/dl (0.6-1.3); GLUCOSE,RANDOM 128 mg/dl (74-106); PHOSPHOROUS 2.5 mg/dl (2.5-4.6); POTASSIUM 4.1 mmol/L (3.5-5.1); SGOT/AST 28 U/L (10-42); SGPT/ALT 48 U/L (10-40); SODIUM 134 mmol/L (136-145)
== END 2017-12-29 12:20 | disposition short-term general hospital (02) | DRG 435 ==
LOC: FER 22:48 → FM/S 12-26 01:45 → OBSVTOIN 12-26 01:45
PROVIDERS: ADMIT Internal Medicine; ATTEND Nurse Practitioner Family
DX: C25.0 Malignant neoplasm of head of pancreas (principal); K85.80 Other acute pancreatitis without necrosis or infection; K85.90 Acute pancreatitis without necrosis or infection, unspecified; A41.9 Sepsis, unspecified organism; K83.1 Obstruction of bile duct; K81.0 Acute cholecystitis; E87.1 Hypo-osmolality and hyponatremia; K83.9 Disease of biliary tract, unspecified; E78.5 Hyperlipidemia, unspecified; M19.90 Unspecified osteoarthritis, unspecified site; T85.898A Other specified complication of other internal prosthetic devices, implants and grafts, initial encounter; Y83.8 Other surgical procedures as the cause of abnormal reaction of the patient, or of later complication, without mention of misadventure at the time of the procedure
CPT/HCPCS: 36415; 74176-TC; 80053; 81003; 82150; 82550; 83605; 83690; 83735; 84100; 84484; 84550; 85025; 85027; 87040; 87086; 93005; 99282-25; J3480; J7030